=== PATIENT | male | born 1955 ===

== ENCOUNTER 2017-06-10 10:40 | Emergency (ER) | payer OTHER ==
[2017-06-10 10:58] VITALS: TEMP 98.6
[2017-06-10] MEDS ORDERED: Sodium Chloride 0.9% 1,000 ML IV ONE (12:43)
[2017-06-10] MEDS ORDERED: Belladonna-Phenobarbital PO STA (12:43)
[2017-06-10] MEDS ORDERED: Aluminum Hydroxide/Magnesium Hydroxide Susp (30 mL) PO STA (12:43)
--- NOTE | 2017-06-10 12:52 | C.PDOC ---
History Of Present Illness 61yo male, presents to ED for evaluation of abdominal pain with associated diarrhea and vomiting for the past day. Patient reports his symptoms started after he ate a roast pork sandwich yesterday morning; states he has had 8 episodes of vomiting since then. He also reports some headache and a tactile fever; states he took Pepto Bismol and aspirin for his symptoms with mild relief. He denies any chest pain, shortness of breath. He has no other medical complaints. Time Seen by Provider: 06/10/17 11:25 Chief Complaint (Nursing): Flu-like Symptoms History Per: Patient History/Exam Limitations: no limitations Onset/Duration Of Symptoms: Days Current Symptoms Are (Timing): Still Present Context: Food Location Of Pain/Discomfort: Diffuse Associated Symptoms: Vomiting, Diarrhea. denies: Chest Pain Past Medical History Reviewed: Historical Data, Nursing Documentation, Vital Signs Vital Signs: Last Vital Signs Temp 98.6 F 06/10/17 10:55 Pulse 109 H 06/10/17 15:07 Resp 18 06/10/17 15:07 BP 128/71 06/10/17 15:07 Pulse Ox 96 06/10/17 15:07 - Medical History PMH: No Chronic Diseases Surgical History: Cholecystectomy Family History: States: No Known Family Hx - Social History Hx Alcohol Use: Yes Hx Substance Use: No - Immunization History Hx Tetanus Toxoid Vaccination: No Hx Influenza Vaccination: No Hx Pneumococcal Vaccination: No Review Of Systems Except As Marked, All Systems Reviewed And Found Negative. Constitutional: Positive for: Fever (tactile) Cardiovascular: Negative for: Chest Pain Respiratory: Negative for: Shortness of Breath Gastrointestinal: Positive for: Nausea, Vomiting, Abdominal Pain, Diarrhea Neurological: Negative for: Headache Physical Exam - Physical Exam Appears: Non-toxic, No Acute Distress Skin: Normal Color Neck: Supple Cardiovascular: Rhythm Regular Respiratory: Normal Breath Sounds Gastrointestinal/Abdominal: Normal Exam, Soft, No Tenderness Neurological/Psych: Oriented x3 ED Course And Treatment - Laboratory Results Result Diagrams: 06/10/17 13:10 06/10/17 13:10 O2 Sat by Pulse Oximetry: 98 (RA) Pulse Ox Interpretation: Normal Medical Decision Making Medical Decision Making: Impression: Abdominal pain with associated vomiting, diarrhea Plan: -- Labs -- Maalox 30ml PO -- 1tab PO -- Pepcid 20mg IVP -- Zofran 4mg IVP Disposition Counseled Patient/Family Regarding: Studies Performed, Diagnosis, Need For Followup - Disposition Referrals: [facility] at [facility] [Outside] Disposition: HOME/ ROUTINE Disposition Time: 15:25 Condition: STABLE Instructions: Gastroenteritis (ED) Forms: Gen Discharge Inst Bulgarian, [facility] (Bulgarian) - Clinical Impression Clinical Impression: Influenza-like illness, Gastroenteritis - Scribe Statement The provider has reviewed the documentation as recorded by the Rose Sparks Provider Attestation: All medical record entries made by the Rose were at my direction and personally dictated by me. I have reviewed the chart and agree that the record accurately reflects my personal performance of the history, physical exam, medical decision making, and the department course for this patient. I have also personally directed, reviewed, and agree with the discharge instructions and disposition.
[2017-06-10] MEDS ORDERED: Belladonna-Phenobarbital ONE (12:59)
[2017-06-10] MEDS ORDERED: Aluminum Hydroxide/Magnesium Hydroxide Susp (30 mL) ONE (12:59)
[2017-06-10 13:13] LABS: BASO % 0.4 % (0.0-2.0); EOS % 0.3 % (0.0-4.0); HEMOGLOBIN 13.7 g/dL (12.0-18.0); LYMPH # 0.9 K/uL (1.0-4.3); LYMPH % 16.4 % (20.0-40.0); MEAN CELL VOLUME 81.5 fL (80.0-94.0); MEAN CORPUSCULAR HEMOGLOBIN 28.1 pg (27.0-31.0); MEAN CORPUSCULAR HGB CONC 34.5 g/dL (33.0-37.0); MEAN PLATELET VOLUME 8.1 fL (7.2-11.7); MONO # 0.5 K/uL (0.0-0.8); MONO % 10.1 % (0.0-10.0); NEUT # 3.9 K/uL (1.8-7.0); NEUT % 72.8 % (50.0-75.0); RBC 4.87 Mil/uL (4.40-5.90); RED CELL DISTRIBUTION WIDTH 13.6 % (11.5-14.5); WHITE BLOOD COUNT 5.4 K/uL (4.8-10.8)
[2017-06-10 13:21] LABS: SQUAMOUS EPITHIAL < 1 /hpf (0-5); URINE BACTERIA RARE (<OCC); URINE BILIRUBIN NEGATIVE (NEGATIVE); URINE BLOOD 1+ (NEGATIVE); URINE CLARITY Clear (Clear); URINE COLOR Yellow (YELLOW); URINE GLUCOSE (UA) NORMAL (Normal); URINE LEUKOCYTE ESTERASE NEG Leu/uL (Negative); URINE NITRATE NEGATIVE (NEGATIVE); URINE PROTEIN 1+ mg/dL (NEGATIVE)
[2017-06-10 13:57] LABS: ALB/GLOB RATIO 1.1 (1.0-2.1); ALBUMIN 3.9 g/dL (3.5-5.0); ALT/SGPT 30 U/L (21-72); AST/SGOT 26 U/L (17-59); BLOOD UREA NITROGEN 19 mg/dL (9-20); CALCIUM 8.8 mg/dl (8.6-10.4); GFR AFRICAN-AMERICAN > 60; GFR NON-AFRICAN AMERICAN > 60; LIPASE 23 U/L (23-300)
[2017-06-10 15:07] VITALS: BP 128/71; PULSE 109; RESP 18
[2017-06-10 15:26] VITALS: O2SAT 98
--- NOTE | 2017-06-11 13:14 | RAD ---
PROCEDURE: Radiographs of the chest and abdomen (obstructive series) HISTORY: abd pain COMPARISON: No prior. TECHNIQUE: AP radiograph of the chest, with upright and supine radiographs of the abdomen. FINDINGS: CHEST: Lungs: Biapical pleural-parenchymal scarring. Right basilar atelectasis versus infiltrate. Cardiovascular: Atherosclerotic aortic calcifications. Normal size heart. No pulmonary vascular congestion. Pleura: No pleural fluid. No pneumothorax. Other findings: None. ABDOMEN AND PELVIS: Bowel: Unremarkable bowel gas pattern. No evidence of mechanical obstruction. Free air: None. Bones: Unremarkable. Other findings: 4 millimeter calcification overlying the midpole of the right renal shadow. IMPRESSION: Right basilar atelectasis versus infiltrate. 4 millimeter calcification overlying the right renal shadow may represent nephrolithiasis. No evidence of free air or obstruction. ER notification submitted electronically.
--- NOTE | 2017-06-13 04:08 | CARD ---
APPROVED REPORT EKG Measurement Heart [id number] <Conclusion> Normal sinus rhythm Possible Left atrial enlargement Cannot rule out Anterior infarct, age undetermined Abnormal ECG
== END 2017-06-10 15:48 | disposition home or self-care (01) ==
LOC: C.ER 10:40
DX: K52.9 Noninfective gastroenteritis and colitis, unspecified (principal); J11.1 Influenza due to unidentified influenza virus with other respiratory manifestations
CPT/HCPCS: 74022; 80053; 81001; 83690; 85025; 96361; 96374; 96375; 99285; J2405; J7040

== ENCOUNTER 2017-06-14 07:50 | Emergency (ER) | payer OTHER ==
[2017-06-14 08:25] VITALS: RESP 18
--- NOTE | 2017-06-14 08:32 | C.PDOC ---
History Of Present Illness 61 year old male presents to ED stating that he was told to come back to ER for further evaluation. Prior records reviewed which shows that pt had CXR done that showed questionable infiltrates, and was requesting a repeat CXR. Pt was seen here 4 days ago for diarrhea, but states that he feels better now, denies diarrhea, or cough. Time Seen by Provider: 06/14/17 07:53 Chief Complaint (Nursing): Medical Clearance History Per: Patient History/Exam Limitations: no limitations Past Medical History Reviewed: Historical Data, Nursing Documentation, Vital Signs Vital Signs: Last Vital Signs Temp 98.6 F 06/14/17 09:30 Pulse 73 06/14/17 09:30 Resp 18 06/14/17 09:30 BP 120/79 06/14/17 09:30 Pulse Ox 97 06/14/17 09:30 Surgical History: Appendectomy, Cholecystectomy Family History: States: Unknown Family Hx - Social History Hx Alcohol Use: Yes Hx Substance Use: No - Immunization History Hx Tetanus Toxoid Vaccination: No Hx Influenza Vaccination: No Hx Pneumococcal Vaccination: No Review Of Systems Except As Marked, All Systems Reviewed And Found Negative. Constitutional: Negative for: Fever, Chills Cardiovascular: Negative for: Chest Pain, Palpitations Respiratory: Negative for: Cough, Shortness of Breath Gastrointestinal: Negative for: Nausea, Vomiting, Abdominal Pain, Diarrhea Physical Exam - Physical Exam Appears: Non-toxic, No Acute Distress Skin: Normal Color, Warm, Dry Head: Atraumatic, Normacephalic Eye(s): bilateral: Normal Inspection Oral Mucosa: Moist Neck: Normal ROM, Supple Cardiovascular: Rhythm Regular, No Murmur Respiratory: Normal Breath Sounds, No Rales, No Rhonchi, No Wheezing Gastrointestinal/Abdominal: Soft, No Tenderness Extremity: Normal ROM, No Deformity Neurological/Psych: Oriented x3, Normal Speech ED Course And Treatment O2 Sat by Pulse Oximetry: 98 (RA) Pulse Ox Interpretation: Normal - Radiology CXR: Interpreted by Me CXR Interpretation: Yes: No Acute Disease Progress Note: Treated with zithromax 500 mg PO. On re-evaluation lungs clear, in no distress. Advised to follow up with PMD or clinic Reassessment Condition: Unchanged Medical Decision Making Medical Decision Making: Plan: CXR Reassess and Dispo Disposition Counseled Patient/Family Regarding: Studies Performed, Diagnosis, Need For Followup, Rx Given - Disposition Referrals: [facility] [Outside] [facility] [employer] [facility] [Outside] Disposition: HOME/ ROUTINE Disposition Time: 09:30 Condition: STABLE Additional Instructions: Follow up with PMD or clinic for further evaluation Prescriptions: Azithromycin [Zithromax] 250 mg PO DAILY #4 tab Instructions: Acute Bronchitis (ED) Forms: [facility] (Faroese) - POA Present On Arrival: None - Clinical Impression Clinical Impression: Influenza-like illness, Bronchitis - PA / [employer] / Resident Statement MD/DO has reviewed & agrees with the documentation as recorded. - Scribe Statement The provider has reviewed the documentation as recorded by the Scribe Clive Benavidez All medical record entries made by the Sandovalibconnie were at my direction and personally dictated by me. I have reviewed the chart and agree that the record accurately reflects my personal performance of the history, physical exam, medical decision making, and the department course for this patient. I have also personally directed, reviewed, and agree with the discharge instructions and disposition.
[2017-06-14 09:32] VITALS: BP 120/79; PULSE 73; TEMP 98.6
--- NOTE | 2017-06-14 09:53 | RAD ---
HISTORY: SOB COMPARISON: No prior TECHNIQUE: Chest PA and lateral FINDINGS: LUNGS: Bibasilar atelectasis right greater than left. Biapical pleural thickening. PLEURA: No significant pleural effusion identified. No pneumothorax apparent. CARDIOVASCULAR: Borderline cardiomegaly. OSSEOUS STRUCTURES: No significant abnormalities. VISUALIZED UPPER ABDOMEN: Normal. OTHER FINDINGS: None. IMPRESSION: Bibasilar atelectasis right greater than left.
[2017-06-14 16:52] VITALS: O2SAT 98
== END 2017-06-14 09:32 | disposition home or self-care (01) ==
LOC: C.ER 07:50
DX: J11.1 Influenza due to unidentified influenza virus with other respiratory manifestations (principal); F17.210 Nicotine dependence, cigarettes, uncomplicated